=== PATIENT | male | born 1960 | race Asian ===

== ENCOUNTER 2018-01-15 10:25 | Day surgery (SDC) | payer OTHER ==
[2018-01-15] MEDS ORDERED: MIDAZOLAM 1 MG/ML 2 ML INJ ×2 (13:43)
[2018-01-15] MEDS ORDERED: FENTAnyl 50 MCG/ML VIAL (13:43)
== END 2018-01-15 15:20 | disposition home or self-care (01) ==
LOC: GIL 10:25
DX: Z12.11 Encounter for screening for malignant neoplasm of colon (principal); D12.5 Benign neoplasm of sigmoid colon; E11.9 Type 2 diabetes mellitus without complications; I10 Essential (primary) hypertension; E78.5 Hyperlipidemia, unspecified
CPT/HCPCS: 45380; 82962; 88305